=== PATIENT | female | born 1945 | race Caucasian/White ===

== ENCOUNTER 2016-11-04 02:59 | Day surgery (SDC) | payer OTHER, MEDICARE ==
[2016-11-04] VITALS (12 sets, daily range): BP systolic 103–132; BP diastolic 58–83; PULSE 58–74; RESP 10–17; O2SAT 96–100
[~2016-11-04] VITALS: Ht 179.1 cm; Wt 100.0 kg
[~2016-11-04 02:59] MED LIST: APIX5TAB PO; ATRV10T PO; CHOL40003 PO; DILT240C51 PO; ESTR0.45 PO; FENO160T14 PO; FLAX1CAP4 PO; LISI10TA PO; MULT1CAP33 PO; OMEG200L PO; UBID10CA4 PO
[2016-11-04] MEDS ORDERED: fentaNYL-PF 50 mCg/mL 2 mL Inj ONE (03:00)
[2016-11-04] MEDS ORDERED: EPHEDrine/NS 5 mg/mL 5 mL Syringe ONE (03:00)
[2016-11-04] MEDS ORDERED: Succinylcholine Chloride 20 mg/mL 5 mL Inj ONE (03:00)
[2016-11-04] MEDS ORDERED: Dexamethasone 4 mg/mL Inj ONE (03:00)
[2016-11-04] MEDS ORDERED: Ondansetron 2 mg/mL 2 mL Inj ONE (03:00)
[2016-11-04] MEDS ORDERED: Propofol 10,000 mCg/mL 20 mL Inj ONE (03:00)
[2016-11-04] MEDS ORDERED: Lactated Ringer's 1,000 ML IV ONE (06:00)
[2016-11-04 06:30] LABS: BASOPHILS % (AUTO) 0.8 % (0-3); EOSINOPHILS % (AUTO) 2.4 % (0-5); MONOCYTES % (AUTO) 8.7 % (4-12); Mean Corpuscular Hemoglobin 31.1 pg (27.0-35.0); Mean Corpuscular Volume 88.1 fL (81-100); NEUTROPHILS % (AUTO) 62.7 % (40-74); Platelet Count 252 bil/L (150-400)
[2016-11-04 06:50] LABS: INR 1.02 ratio
[2016-11-04] MEDS ORDERED: UBID1CAP52 PO (06:51)
[2016-11-04] MEDS ORDERED: OMEG-38 PO (06:51)
[2016-11-04] MEDS ORDERED: ESTR0.3T2 PO (06:51)
[2016-11-04] MEDS ORDERED: CHOL200047 PO (06:51)
[2016-11-04] MEDS ORDERED: Heparin 1,000 Unit/mL 10 mL Inj ONE (07:41)
[2016-11-04] MEDS ORDERED: 0.9% Sodium Chloride 1,000 ML ONE (07:41)
--- NOTE | 2016-11-04 07:41 | PCM.HPANE ---
Patient Data Date of Service: Nov 04, 2016 Surgeon Admitting Provider: Attending Provider:Amaury Alcantar MD Primary Care Physician:Other,Physician Other Provider:Kelsea Olmedo Anesthesia Reason for Visit Aflutter Ht/WT & BMI Height (Feet): 5 Height (Inches): 10.50 Weight (Kilograms): 100.000 Body Mass Index 31.21 Allergies Coded Allergies: No Known Allergies (Unverified , 11/04/16) verified with patient Past Anesthesia History Anesthesia History: Denies:: Anesthesia Reactions Diabetes History Hx Diabetes?: No MRSA MRSA: No Medications Last Dose Blood Thinner: Nov 03, 2016 Hypertension Medication: Yes Home Meds Incl Beta Ben: No Reported Medications Ubidecarenone/Vit E Acetate (Co Q-10 100 mg Softgel)1 Each Capsule1 Each PO DAILY 11/04/16 Muddy-3/Dha/Epa/Fish Oil (Fish Oil 1,000 mg Softgel)1 Each Capsule1 Each PO BID 11/04/16 Estrogens, Conjugated (Premarin)0.3 Mg Tablet0.15 Mg PO DAILY 30 Days Ref 0 11/04/16 Cholecalciferol (Vitamin D3) (Vitamin D3)2,000 Unit Capsule2,000 Unit PO BID 11/04/16 Multivitamin (Multivitamins)1 Each Capsule1 Each PO DAILY 11/03/16 Lisinopril 10 Mg Baplad24 Mg PO DAILY 30 Days Ref 0 11/03/16 Flaxseed/Omega3,6,9/Fatty Acid (Flax Seed Oil 1,300 mg Softgel)1 Each Capsule1 Each PO DAILY 11/03/16 Fenofibrate 160 Mg [id number] Mg PO DAILY Ref 0 11/03/16 Apixaban (Eliquis)5 Mg Tablet5 Mg PO BID 11/03/16 Diltiazem ER (Cartia XT)240 Mg Cap.er.[id number] Mg PO DAILY 11/03/16 Atorvastatin (Lipitor)10 Mg Tab10 Mg PO DAILY Ref 0 11/03/16 Discontinued Reported Medications Cholecalciferol (Vitamin D3) (Vitamin D3)4,000 Unit Capsule4,000 Unit PO DAILY 11/03/16 Estrogens, Conjugated (Premarin)0.45 Mg Tablet0.45 Mg PO DAILY 30 Days 11/03/16 Muddy 3/Dha/Epa/Other Om3/D3 (Muddy-3 + Vitamin D3 Liquid)200 Ml [id number] Ml PO DAILY 11/03/16 Ubidecarenone (Co Q-10)10 Mg [id number] Mg PO 11/03/16 History History of ENT Problems?: Yes HEENT History: Denies:: Difficult Intubation TMJ Denture Type: None Teeth Condition: Within Normal Limits Other HEENT Pertinent History: has floaters in vision Hx of Heart Problems?: Yes Cardiovascular History: Positive for:: Irregular Heartbeat (atrial flutter) Valvular Heart Disease (mild ) Denies:: Chest Pain Hx of Respiratory Problem?: No Respiratory History: Denies:: COPD Cough Dyspnea Use of Inhalers / NEBS Hx Neurologic Problems?: No Neurological History: Denies:: CVA Peripheral Neuropathy Hx of GI Problems?: No Hx of Problems?: No Other Skin Pertinent History: basal and squamous cell carcinoma Hx Musculoskeletal Problems?: Yes Musculoskeletal History: Positive for:: Back Injury (low back) Hx of Psycho/Social Problems?: No Psycho Social History: Positive for:: Anxiety (with regards to procedure today ) Hx Surgeries?: Yes (tonsillectomy, appendectomy) Hx Any Other Health Problems?: No History Blood Transfusions: Positive for:: Accept Blood Products? Denies:: Blood Transfusions Hx Alcohol Use: NoHx Substance Use: No Stop/Bang Treated for Sleep Apnea?: No Do You Have a CPAP Machine?: No S-Snoring: Do You Snore Loudly: No T-Tired: feel tired, fatigued: No O-Obsered: Observed not breath: No P-Blood Pressure: treated: Yes B- Body Mass Index > 35 kg/m2: No A- Age over 50: Yes N- Neck Large Circumference: No G- Gender Male: No ALAN Risk Assessment: Low Risk, <3 Yes Risk Assessment Category Category 1A: Patient has history of documented sleep apnea, and HAS NOT received any narcotic, sedative or anesthesia administration during this stay. Category 1B: Patient has history of documented sleep apnea, and HAS received any narcotic , sedative or anesthesia administration during this stay Category 2: Patient has SUSPECTED Obstructive Sleep Apnea, and HAS received any narcotic , sedative or anesthesia administration during this stay. Category 3: Patient has SUSPECTED Obstructive Sleep Apnea and HAS NOT received narcotic, sedative or anesthesia administration during this stay. Category 4: Outpatient in Procedural Areas with known sleep apnea or who screen positive for High Risk via the STOP/BANG questionnaire. Exam Exam Vital Signs Vital Signs Date Time Temp Pulse Resp B/P Pulse Ox O2 Delivery O2 Flow Rate FiO2 11/04/16 06:35 36.5 67 17 125/83 98 Room Air General Appearance: Alert, Oriented X3, Cooperative, No Acute Distress HEENT/AIRWAY: MP 1, Neck Movement (limited), Mouth Opening (normal, TMD 3 FB) Lungs: Clear to Auscultation, Normal Air Movement Heart: Exam Unremarkable, Regular Rate/Rhythm, No Murmurs/Rubs/Gallops Meds/Labs/Diagnostics Labs Test 11/04/16 06:20 White Blood Count 5.1th/mm3 (3.8-10.1) Red Blood Count 4.28mil/mm3 (3.90-5.20) Hemoglobin 13.3g/dL (12.0-15.6) Hematocrit 37.7% (35.0-46.0) Mean Corpuscular Volume 88.1fL (81-100) Mean Corpuscular Hemoglobin 31.1pg (27.0-35.0) Mean Corpuscular Hemoglobin Concent 35.3% (32.0-37.0) Red Cell Distribution Width 11.9% (12.3-15.4) Platelet Count 252bil/L (150-400) Neutrophils (%) (Auto) 62.7% (40-74) Lymphocytes (%) (Auto) 25.0% (14-46) Monocytes (%) (Auto) 8.7% (4-12) Eosinophils (%) (Auto) 2.4% (0-5) Basophils (%) (Auto) 0.8% (0-3) Prothrombin Time 10.9sec (8.1-12.5) Prothromb Time International Ratio 1.02ratio Sodium Level 139mEq/L (134-144) Potassium Level 4.1mEq/L (3.5-5.2) Chloride Level 102mEq/L (97-108) Carbon Dioxide Level 21mmol/L (18-29) Blood Urea Nitrogen 27mg/dL (8-27) Creatinine 1.34mg/dL (0.57-1.00) Estimat Glomerular Filtration Rate 56mL/min (>59) Glucose Level 104mg/dL (60-99) Calcium Level 10.0mg/dL (8.5-10.1) Plan Impression Patient chart reviewed, patient interviewed and anesthestic plan with risks, benefits, and alternatives discussed, and informed consent obtained. NPO per Anesth. Guidelines: Yes ASA Physical Status: ASA3 Severe Disease (Atrial flutter, HTN) Anesthetic Plan: GA Bene/Risks/Altern/Consents: Yes HP Complete Prior to Induction: Yes Deni Winter MD Nov 04, 2016 07:41
[2016-11-04] MEDS ORDERED: Heparin 10,000 Unit/1,000 mL NS Premix IV ONE (07:42)
[2016-11-04] MEDS ORDERED: HYDROcodone-APAP 5-325 mg Tablet PO PRN (09:45)
[2016-11-04] MEDS ORDERED: Ondansetron 2 mg/mL 2 mL Inj IVPUSH PRN ×2 (09:45→10:05)
[2016-11-04] MEDS ORDERED: Lactated Ringer's 1,000 ML IV SCH (10:05)
[2016-11-04] MEDS ORDERED: EPHEDrine Sulfate 50 mg/mL Inj IM PRN (10:05)
[2016-11-04] MEDS ORDERED: EPHEDrine Sulfate 50 mg/mL Inj IVPUSH PRN (10:05)
[2016-11-04] MEDS ORDERED: hydrALAZINE 20 mg/mL Inj IVPUSH PRN (10:05)
[2016-11-04] MEDS ORDERED: Albuterol 2.5 mg/3 mL Inhalation Solution NEB PRN (10:05)
[2016-11-04] MEDS ORDERED: Lactated Ringer's 500 ML IV PRN (10:05)
[2016-11-04] MEDS ORDERED: fentaNYL-PF 50 mCg/mL 2 mL Inj IVPUSH PRN (10:05)
[2016-11-04] MEDS ORDERED: Labetalol 5 mg/mL 4 mL Inj IV PRN (10:05)
[2016-11-04] MEDS ORDERED: Phenylephrine 10,000 mCg/mL Inj IVPUSH PRN (10:05)
[2016-11-04] MEDS ORDERED: HYDROmorphone 1 mg/mL Inj IVPUSH PRN (10:05)
[2016-11-04] MEDS ORDERED: Atropine 0.4 mg/mL Inj IVPUSH PRN (10:05)
--- NOTE | 2016-11-04 12:23 | PROCED ---
[address] [address] PROCEDURE NOTE PATIENT: KRYSTLE CHOPRA : 1945 MR#: [id number] ADMIT: 11/04/2016 JOB ID: [id number] DATE OF SERVICE: 11/04/2016 PREOPERATIVE DIAGNOSIS(ES): Paroxysmal recurrent drug refractory atrial flutter. POSTOPERATIVE DIAGNOSIS(ES): Paroxysmal recurrent drug refractory atrial flutter. PROCEDURES PERFORMED: 1. Comprehensive electrophysiology study with left atrial pacing via the coronary sinus catheter. 2. Three-dimensional electroanatomic mapping using the CARTO-3 system. 3. Atrial flutter ablation (cavotricuspid isthmus ablation; supraventricular tachycardia atrial ablation). 4. Fluoroscopy. SURGEON: Amaury Alcantar MD PV INSTALLER TECH: Jie . ANESTHESIA: General endotracheal anesthesia was undertaken for this case. INDICATION: The patient is a pleasant 71-year-old woman with recurrent drug refractory atrial flutter. After discussion of risks and benefits of catheter based mapping ablation, she opted to proceed. PROCEDURAL DESCRIPTION: Following informed consent the patient was taken to the EP laboratory in a fasting state where she was prepped and draped in usual sterile fashion. The right inguinal region was infiltrated with 1% lidocaine. Then, using modified Seldinger technique, one 8 and two 7-Uzbek sheaths were inserted to right femoral vein. Under fluoroscopic guidance, a deflectable decapolar catheter was advanced in the coronary sinus with the most proximal bipoles at the os of the sinus. A 20 pole Livewire catheter was used to encircle the tricuspid anulus. The patient was in sinus rhythm at the onset of the case. Pacing was undertaken from the coronary sinus os while monitoring the atrial activation pattern on the Livewire catheter. A J-curve Smart Touch irrigated ablation catheter was brought to the field for a three-dimensional electroanatomic map of the right atrium, tricuspid anulus, and cavotricuspid isthmus. A linear series of ablations was performed from the ventricular to the IVC aspect of the cavotricuspid isthmus. Ultimately leading to medial to lateral block. Lateral to medial was confirmed a 20 minute waiting period was undertaken during which bidirectional isthmus block was confirmed. During the course of this study, we did complete a comprehensive electrophysiology study with right atrial pacing recording, right ventricular , His bundle recording. coronary sinus catheter. All catheters and sheaths were removed. Manual pressure was held for hemostasis. Patient was transferred to the [facility] for monitoring, bedrest and discharge. COMPLICATIONS: None. ESTIMATED BLOOD LOSS: Negligible. FINDINGS: 1. Baseline rhythm is sinus with an RR interval of 930 msec, CA 201 msec, QRS 82 msec, QTc 410 msec. 2. Intracardiac intervals: AH interval 121 msec, HV 58 msec. 3. Retrograde conduction. No VA conduction was seen. 4. Cavotricuspid isthmus ablation as described above with bidirectional block post ablation specifically trans isthmus time was 1:53 msec and lateral to medial direction and 150 msec the medial to lateral direction. IMPRESSION: Successful cavotricuspid isthmus ablation for drug refractory recurrent atrial flutter. PLAN: 1. Bed rest x4 hours. 2. Continue current medication regimen including anticoagulation to be resumed in the recovery area. 3. Follow up with Tate Walters in clinic in four weeks and with her primary student finance advisor thereafter. ATTESTATION: Gretchen Alcantar MD, was present for and supervised/performed all aspects of this procedure.
--- NOTE | 2016-11-04 13:48 | NUR ---
Pt assisted up off bedrest.Right groin site without bleeding or hematoma.
--- NOTE | 2016-11-04 14:18 | NUR ---
Discharge instructions reviewed with patient and spouse.She has been ambulatory x 25 minutes. Right groin remains intact. Pt discharged ambulatory with spouse.
--- NOTE | 2016-11-04 14:20 | PCM.ANEP1 ---
Post Anesthesia PACU Phase 1 Assessment Date of Service: Nov 04, 2016 Vital Signs Vital Signs Date Time Temp Pulse Resp B/P Pulse Ox O2 Delivery O2 Flow Rate FiO2 11/04/16 13:43 74 16 124/66 Room Air 11/04/16 13:00 69 17 123/64 Room Air 11/04/16 12:00 64 17 129/62 Room Air 11/04/16 11:30 61 17 122/60 Room Air 11/04/16 11:03 59 17 124/61 99 Room Air 11/04/16 10:43 60 17 132/62 100 Room Air 11/04/16 10:30 58 14 123/62 98 Room Air 11/04/16 10:15 60 14 127/68 99 Room Air 11/04/16 10:05 65 16 116/62 98 Room Air 11/04/16 10:00 67 12 103/65 96 Room Air 11/04/16 09:55 68 10 120/58 96 Room Air 11/04/16 06:35 36.5 67 17 125/83 98 Room Air Anesthetic Administered: GA Level of Alertness: Awake, talking MCKEON's with Equal Strength: Yes Pain: No Nausea or Vomiting: No CV Function & Hydration Stable: Yes Airway Device: none Oxygen Delivery: Room Air Lungs: Clear to Auscultation, Normal Air Movement Dermatome Level: Full Sensation PACU Phase 2 Assessment Complications: No Follow up Care: No Patient Instructions Provided: N/A Deni Winter MD Nov 04, 2016 14:20
== END 2016-11-04 23:59 | disposition home or self-care (01) ==
LOC: SOUO 02:59
PROVIDERS: ATTEND Internal Medicine Cardiovascular Disease
DX: I48.92 Unspecified atrial flutter (principal); Z79.01 Long term (current) use of anticoagulants; I10 Essential (primary) hypertension
CPT/HCPCS: 36415; 80048; 85025; 85610; 93005; 93613; 93621; 93653; C1730; C1731; C1732; C1893; J0330; J1100; J1644; J2250; J2405; J2704; J3010; J7030